=== PATIENT | male | born 1995 | race Caucasian/White ===

== ENCOUNTER 2017-12-14 02:55 | Emergency (ER) | payer BC, OTHER ==
[~2017-12-14] VITALS: Ht 190.5 cm; Wt 97.0 kg
[2017-12-14 03:01] VITALS: TEMP 36.7; O2SAT 96; Ht 190.5 cm; Wt 97.0 kg
--- NOTE | 2017-12-14 03:10 | EMERGENCY ROOM VISIT NOTE ---
History Report prepared by Lissette: Dorothy Irby Under the Supervision of: Dr. Kelly Valdes D.O. 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 As per EMS, the patient was found sleeping outside of [facility]. When they woke him up, the patient was unaware of the date and year. He told EMS he drank a few beers and some shots tonight. When asked, the patient states he was drinking at a [employer] and is [place] at a hotel [place]. He denies falling and hitting his head, leg cramping, leg swelling, or any pain. HPI limited due to the patient's intoxication. Source of History: patient, EMS Onset: a few hours waiter/waitress captain Position: other (global) Quality: other (alcohol overdose) Note: Negative falling and hitting his head, leg cramping, leg swelling, or any pain. Review of Systems See HPI for pertinent positives & negatives. HPI and ROS limited due to the patient's intoxication. Past Medical & Surgical Medical Problems: (1) No significant past medical history Family History Patient reports no known family medical history. Social History Smoking Status: Never Smoker Alcohol Use: occasionally Marital Status: in relationship Current/Historical Medications No Active Prescriptions or Reported Meds Allergies Coded Allergies: No Known Allergies (Unverified , 12/14/17) Physical Exam Vital Signs Date Time Temp Pulse Resp B/P (MAP) Pulse Ox O2 Delivery O2 Flow Rate FiO2 12/14/17 05:25 76 18 133/69 95 Room Air 12/14/17 04:00 85 115/61 95 Room Air 12/14/17 03:30 88 126/71 95 Room Air 12/14/17 03:02 107 12/14/17 03:01 96 Room Air 12/14/17 03:01 36.7 102 18 158/88 98 Room Air Physical Exam General: Smells of alcohol HEENT: Head - normocephalic and atraumatic Pupils are equal, round, and reactive to light. Extraocular eye muscles are intact. Moderate scleral injection. Nose - moist nasal mucosa without discharge. Mouth - moist buccal mucosa. Oropharynx is nonerythematous and there is no tonsillar exudate or edema noted. Neck: Supple; no JVD, nuchal rigidity, cervical lymphadenopathy. Heart: Regular rate and rhythm. There is a normal S1 and S2 with no murmurs, clicks, or gallops appreciated. Lungs: Clear to auscultation bilaterally with no wheezes, rales, or rhonchi. Abdomen: Soft, completely nontender, nondistended, with good bowel sounds. There are no palpable pulsatile masses or hepatosplenomegaly. There is no guarding, rigidity, or rebound noted. Extremities: No evidence of cyanosis, clubbing, or edema. There are easily palpable peripheral pulses. Skin: warm and dry with good turgor and no rashes. Medical Decision & Procedures Laboratory Results 12/14/17 03:10 Test 12/14/17 03:10 Anion Gap 9.0 mmol/L (3-11) Est Creatinine Clear Calc Drug Dose 134.8 ml/min Estimated GFR () 120.1 Estimated GFR (Non- 103.6 BUN/Creatinine Ratio 9.7 (10-20) Calcium Level 8.2 mg/dl (8.5-10.1) Ethyl Alcohol mg/dL 203.0 mg/dl (0-3) Laboratory results per my review. ED Course 0258: Past medical records reviewed. The patient was evaluated in room A3. A complete history and physical exam was performed. The patient was observed on the cardiac nurse specialist and pulse oximeter. Labs were drawn as above 0406: I checked on the patient at this time. He was sleeping. His vital signs were stable. 0516: I checked on the patient at this time. The patient was awake and was going to try and call his girlfriend. 0553: I checked on the patient at this time. He is still trying to get a hold of someone and he is currently sitting up in a chair. 0603: Upon reevaluation, the patient is feeling much better. I discussed findings and results with him. He verbalized agreement of the treatment plan. 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 Differential diagnosis include alcohol overdose, drug intoxication, hypoglycemia, head injury , as well as others were entertained. Lab results show Alcohol is 203 Potassium 3.3 Glucose 109 Normal renal function The patient was brought to the emergency department after consuming too much alcohol. There were no obvious signs of trauma or complaints of pain. They were observed closely throughout the night and remained stable while here in the ER. The patient was allowed time to sober up prior to discharge. I had a conversation with the patient about the hazards of such excessive alcohol use. Medication Reconcilliation Current Medication List: was personally reviewed by me Blood Pressure Screening Patient's blood pressure: Elevated blood pressure Blood pressure disposition: Elevated BP felt to be situational Impression Primary Impression: Alcohol overdose Scribe Attestation The scribe's documentation has been prepared under my direction and personally reviewed by me in its entirety. I confirm that the note above accurately reflects all work, treatment, procedures, and medical decision making performed by me. Departure Information Dispostion Home / Self-Care Prescriptions No Active Prescriptions or Reported Meds Referrals No Doctor, Assigned (PCP) Forms HOME CARE DOCUMENTATION FORM, IMPORTANT VISIT INFORMATION Patient Instructions My [facility] Additional Instructions Avoid such excessive alcohol use in the future. Tylenol 650 mg every 6 hours for headache. Drink plenty of fluids and take a bland diet today. Return to the emergency department for worsening symptoms or any medical concerns. Problem Qualifiers Primary Impression: Alcohol overdose Encounter type: initial encounter Injury intent: accidental or unintentional Qualified Codes: T51.91XA - Toxic effect of unspecified alcohol , accidental (unintentional), initial encounter
[2017-12-14 03:34] LABS: CALCIUM 8.2 mg/dl (8.5-10.1); CREATININE 1.01 mg/dl (0.60-1.40); POTASSIUM 3.3 mmol/L (3.5-5.1)
[2017-12-14 06:31] VITALS: BP 127/67; PULSE 78; O2SAT 98
== END 2017-12-14 06:29 | disposition home or self-care (01) ==
LOC: EDBD 02:55 → C.EDA 02:56
DX: T51.0X1A Toxic effect of ethanol, accidental (unintentional), initial encounter (principal)